=== PATIENT | male | born 1980 | race Two or more races ===

== ENCOUNTER → 2017-04-20 | Outpatient (REF) | payer BC | LOC: M LAB REF 14:03 | PROVIDERS: ATTEND Physician Assistant | DX: J02.9 Acute pharyngitis, unspecified (principal) ==

== ENCOUNTER → 2017-08-27 | Outpatient (REF) | payer BC ==
[2017-08-27 12:53] LABS: C REACTIVE PROTEIN QUANTITATIV 0.39 MG/DL (0.00-0.30)
[2017-08-27 12:53] LABS: RHEUMATOID FACTOR QUANT < 10.0 IU/ML (<15.0)
[2017-08-29 00:06] LABS: ANTINUCLEAR ANTIBODIES DIRECT Negative (Negative); Lyme Disease IgG/IgM Antibodie <0.91 ISR (0.00-0.90); Lyme Disease IgM Ab Quantitati <0.80 index (0.00-0.79)
== END ==
LOC: M LABDRAW1 09:10
DX: R22.31 Localized swelling, mass and lump, right upper limb (principal)
CPT/HCPCS: 86140

== ENCOUNTER → 2019-02-13 | Outpatient (CLI) | payer BC ==
--- NOTE | 2019-02-13 12:26 | REP ---
Oral spine series: Seven views. History: Pain radiating down to the elbows. Findings: Lateral views done in flexion extension and neutral position demonstrate normal alignment of the cervical spine. Vertebral body heights are preserved. No subluxation or instability is seen. There is mild discogenic spurring anteriorly at C4-5 and C6-7. Prevertebral soft tissues are not thickened. Oblique images demonstrate bilaterally normally aligned facets and intact neural foramina at each level. AP and open mouth odontoid views are unremarkable. Impression: Mild degenerative disc changes C4-5 and C6-7. Otherwise negative. Electronically Signed by Issac Austin MD 02/13/2019 10:51 A
== END ==
LOC: MERGE 10:09 → M WUC 10:09
PROVIDERS: ATTEND Chiropractor
DX: M50.321 Other cervical disc degeneration at C4-C5 level (principal); M50.323 Other cervical disc degeneration at C6-C7 level

== ENCOUNTER → 2019-07-10 | Outpatient (REF) | payer BC | LOC: M LAB REF 17:26 | PROVIDERS: ATTEND Dermatology | DX: D23.39 Other benign neoplasm of skin of other parts of face (principal) ==

== ENCOUNTER → 2021-07-14 | Outpatient (REF) | payer BC | LOC: M LAB REF 17:50 | PROVIDERS: ATTEND Physician Assistant | DX: D48.9 Neoplasm of uncertain behavior, unspecified (principal) ==

== ENCOUNTER 2023-04-29 22:08 | Emergency (ER) | payer BC ==
[~2023-04-29] VITALS: Ht 185.4 cm; Wt 104.0 kg
[2023-04-30] MEDS ORDERED: KETOROLAC 30 MG/ML 1ML VIAL IV ONE (02:20)
[2023-04-30 02:51] LABS: BASO % 0.5 % (0.0-1.0); EOS # 0.2 10^3/uL (0.0-0.5); EOS % 2.9 % (0.0-3.0); HEMATOCRIT 42.8 % (42.0-52.0); HEMOGLOBIN 15.2 g/dl (13.5-17.5); LYMPH # 2.3 10^3/uL (1.5-5.0); LYMPH % 30.4 % (24.0-44.0); MEAN CORPUSCULAR HEMOGLOBIN 31.8 pg (27.0-33.0); MEAN CORPUSCULAR HGB CONC 35.5 g/dl (32.0-36.5); MEAN CORPUSCULAR VOLUME 89.5 fl (80.0-96.0); MONO # 0.6 10^3/uL (0.0-0.8); MONO % 8.1 % (2.0-8.0); NEUTROPHILS # 4.5 10^3/uL (1.5-8.5); PLATELET COUNT, AUTOMATED 242 10^3/uL (150-450); RED BLOOD COUNT 4.78 10^6/uL (4.30-6.10); WHITE BLOOD COUNT 7.7 10^3/uL (4.0-10.0)
[2023-04-30 03:02] LABS: HEMOGLOBIN A1c 4.8 % (4.0-6.0)
[2023-04-30 03:16] LABS: CK-MB VALUE MASS < 1.0 NG/ML (<3.6)
[2023-04-30 03:17] LABS: BLOOD UREA NITROGEN 16 MG/DL (9-23); CARBON DIOXIDE LEVEL 27 MMOL/L (20-31); CHLORIDE LEVEL 107 MMOL/L (98-107); CPK CREATINE PHOSPHOKINASE 181 U/L (46-171); CREATININE FOR GFR 0.97 MG/DL (0.70-1.30); GLOMERULAR FILTRATION RATE > 60.0 (>60); GLUCOSE, FASTING 99 MG/DL (60-100); MB/CK RELATIVE INDEX 0.55 (< OR =4); POTASSIUM SERUM 4.4 MMOL/L (3.5-5.1); SODIUM LEVEL 142 MMOL/L (136-145)
[2023-04-30] MEDS ORDERED: NAPR-837 PO (04:15)
[2023-04-30 04:36] VITALS: BP 138/86; TEMP 98.6; O2SAT 99
== END 2023-04-30 04:42 | disposition home or self-care (01) ==
LOC: M ED 22:08
DX: R20.2 Paresthesia of skin (principal); M19.90 Unspecified osteoarthritis, unspecified site; M50.20 Other cervical disc displacement, unspecified cervical region; Z82.49 Family history of ischemic heart disease and other diseases of the circulatory system
CPT/HCPCS: 80048; 82550; 82553; 83036; 84484; 85025; 93005; 96374; 99284; J1885

== ENCOUNTER → 2023-05-12 | Outpatient (REF) | payer BC ==
[~2023-05-12] MED LIST: NAPR-837 PO
== END ==
LOC: M LABSMT 10:41
PROVIDERS: ATTEND Urology
DX: Z30.2 Encounter for sterilization (principal)

== ENCOUNTER → 2023-07-23 | Outpatient (REF) | payer BC | LOC: M LAB REF 11:25 | PROVIDERS: ATTEND Nurse Practitioner Adult Health | DX: K58.0 Irritable bowel syndrome with diarrhea (principal) ==

== ENCOUNTER → 2023-09-10 | Outpatient (REF) | payer BC ==
[2023-09-10 14:32] LABS: SEMEN APPEARANCE OPAQUE (OPAQUE); SEMEN VISCOSITY LIQUID (LIQUID); SEMEN VOLUME 1.4 ml (2.0-5.0); WBC CONCENTRATION <=1 M/ml (<=1 M/ml)
== END ==
LOC: M SMT 13:58
PROVIDERS: ATTEND Urology
DX: Z30.2 Encounter for sterilization (principal)

== ENCOUNTER → 2024-06-16 | Outpatient (CLI) | payer BC | LOC: M PLAIMG 09:48 | PROVIDERS: ATTEND Physician Assistant Surgical | DX: M47.892 Other spondylosis, cervical region (principal); M25.78 Osteophyte, vertebrae; M99.71 Connective tissue and disc stenosis of intervertebral foramina of cervical region ==